=== PATIENT | male | born 2000 | race Two or more races ===

== ENCOUNTER 2022-09-03 07:47 | Emergency (ER) | payer SELFPAY ==
[~2022-09-03] VITALS: Ht 162.6 cm; Wt 79.6 kg
[2022-09-03 08:36] LABS: Basophils # (auto) 0.1 10 ^3/uL (0-0.2); Basophils % (auto) 0.4 % (0.0-2.0); Eosinophils # (auto) 0 10 ^3/uL (0-0.8); Eosinophils % (auto) 0.1 % (0.0-7.0); Hematocrit 43.8 % (41.0-53.0); Hemoglobin 15.1 g/dL (13.5-17.5); Lymphocytes # (auto) 2.4 10 ^3/uL (0.4-5.4); Lymphocytes % (auto) 11.4 % (10.0-50.0); Mean Corpuscular Hemoglobin 30.2 pg (28.0-32.0); Mean Corpuscular Hgb Conc. 34.5 g/dL (32.0-36.0); Mean Corpuscular Volume 87.5 fL (80.0-100.0); Monocytes # (auto) 1.3 10 ^3/uL (0-1.3); Monocytes % (auto) 6.2 % (0.0-12.0); Neutrophils # (auto) 17.5 10 ^3/uL (1.6-8.6); Neutrophils % (auto) 81.9 % (37.0-80.0); Red Cell Distribution Width 13.1 % (11.8-14.3); White Blood Cell 21.4 10^3/uL (4.4-10.8)
[2022-09-03 08:38] LABS: Urine Bacteria NONE SEEN /hpf (None Seen); Urine Blood Negative /uL (Negative); Urine Mucus FEW (None Seen); Urine Specific Gravity 1.019 (1.001-1.035); Urine WBC <1 /hpf (0 - 3)
[2022-09-03 09:15] LABS: Potassium 3.8 mmol/L (3.5-5.1)
[2022-09-03 09:24] LABS: Albumin 4.1 g/dL (3.4-5.0); BUN/Creatinine Ratio 13.3 (10.0-20.0); Bilirubin, Total 1.3 mg/dL (0.2-1.0)
[2022-09-03] MEDS ORDERED: FAMOTIDINE 20 MG TAB PO ONE (11:15)
[2022-09-03] MEDS ORDERED: KETOROLAC TROMETH 30 MG/ML 1ML VIAL IM ONE (11:15)
[2022-09-03] MEDS ORDERED: ONDANSETRON ODT 4 MG TAB PO ONE (11:15)
[2022-09-03] MEDS ORDERED: MAALOX PLUS or MAALOX 30 ML PO ONE (11:15)
[2022-09-03] MEDS ORDERED: METO-281 PO (11:22)
[2022-09-03 11:53] VITALS: BP 127/68
== END 2022-09-03 12:27 | disposition home or self-care (01) ==
LOC: ER 07:47
DX: B34.9 Viral infection, unspecified (principal)
CPT/HCPCS: 36415; 80053; 81001; 83690; 85025; 96372; 99284; J1885; Q0162

== ENCOUNTER 2023-07-05 08:29 | Emergency (ER) | payer MEDICAID ==
[~2023-07-05] VITALS: Ht 172.7 cm; Wt 80.6 kg
[~2023-07-05 08:29] MED LIST: METO-281 PO
[2023-07-05 08:32] VITALS: TEMP 99.2
[2023-07-05 08:38] VITALS: BP 131/82; PULSE 80; RESP 18; O2SAT 99
[2023-07-05] MEDS ORDERED: ACYC5CRE4 TOP (10:19)
[2023-07-05] MEDS ORDERED: VALA500T33 PO (10:19)
[2023-07-05] MEDS ORDERED: TRIA0.1P12 MT (10:19)
[2023-07-05] MEDS ORDERED: LIDO2SOL26 MT (10:19)
[2023-07-05] MEDS ORDERED: NAP500T PO (10:19)
== END 2023-07-05 11:05 | disposition home or self-care (01) ==
LOC: ER 08:29
DX: R23.8 Other skin changes (principal)